=== PATIENT | female | born 1960 | race Caucasian/White ===

== ENCOUNTER 2017-12-30 04:54 | Outpatient (CLI) | payer BC, MEDICARE ==
[~2017-12-30 04:54] MED LIST: ALIR75PE INJ; AMLO10TA4 PO; ASPI-1264 PO; CELE200C PO; CITA20TA19 PO; CLOP75TA15 PO; CYCL-394 PO; FURO-149 PO; GLYB5TAB7 PO; LEVO100T78 PO; LORA1TAB PO; METF500T PO; NITR0.4T51 SL; RABE20TA18 PO; SPIR25TA3 PO
== END 2017-12-30 23:59 | disposition home or self-care (01) ==
LOC: DIABETIC 04:54
PROVIDERS: ATTEND Surgery
DX: E66.01 Morbid (severe) obesity due to excess calories (principal); I10 Essential (primary) hypertension; J45.909 Unspecified asthma, uncomplicated; E11.9 Type 2 diabetes mellitus without complications
CPT/HCPCS: 97802

== ENCOUNTER 2018-01-08 03:43 | Outpatient (CLI) | payer BC, MEDICARE | END 2018-01-08 23:59 | disposition home or self-care (01) | LOC: DIABETIC 03:43 | PROVIDERS: ATTEND Surgery | DX: E66.01 Morbid (severe) obesity due to excess calories (principal); E11.9 Type 2 diabetes mellitus without complications; I10 Essential (primary) hypertension; K21.9 Gastro-esophageal reflux disease without esophagitis; J45.909 Unspecified asthma, uncomplicated; G47.30 Sleep apnea, unspecified | CPT/HCPCS: 97802 ==

== ENCOUNTER 2018-02-10 04:35 | Outpatient (CLI) | payer BC, MEDICARE ==
[~2018-02-10 04:35] MED LIST changes: -SPIR25TA3 PO; +SPIR25TA5 PO
== END 2018-02-10 23:59 | disposition home or self-care (01) ==
LOC: DIABETIC 04:35
PROVIDERS: ATTEND Surgery
DX: E66.01 Morbid (severe) obesity due to excess calories (principal); I10 Essential (primary) hypertension; K21.9 Gastro-esophageal reflux disease without esophagitis; G47.30 Sleep apnea, unspecified; E11.9 Type 2 diabetes mellitus without complications; J45.909 Unspecified asthma, uncomplicated; Z79.899 Other long term (current) drug therapy
CPT/HCPCS: 97802

== ENCOUNTER 2018-03-10 02:20 | Outpatient (CLI) | payer BC, MEDICARE | END 2018-03-10 23:59 | disposition home or self-care (01) | LOC: DIABETIC 02:20 | PROVIDERS: ATTEND Surgery | DX: E66.01 Morbid (severe) obesity due to excess calories (principal); I10 Essential (primary) hypertension; E11.9 Type 2 diabetes mellitus without complications; K21.9 Gastro-esophageal reflux disease without esophagitis; J45.909 Unspecified asthma, uncomplicated; G47.30 Sleep apnea, unspecified | CPT/HCPCS: 97802 ==

== ENCOUNTER 2018-08-05 02:01 | Outpatient (CLI) | payer BC, MEDICARE | END 2018-08-05 23:59 | disposition home or self-care (01) | LOC: DIABETIC 02:01 | PROVIDERS: ATTEND Surgery | DX: E66.01 Morbid (severe) obesity due to excess calories (principal); E11.9 Type 2 diabetes mellitus without complications; I10 Essential (primary) hypertension; I25.2 Old myocardial infarction; J45.909 Unspecified asthma, uncomplicated; Z71.3 Dietary counseling and surveillance; Z79.82 Long term (current) use of aspirin; Z79.84 Long term (current) use of oral hypoglycemic drugs | CPT/HCPCS: 97802 ==

== ENCOUNTER 2021-03-10 09:43 | Day surgery (SDC) | payer BC, MEDICARE ==
[~2021-03-10] VITALS: Ht 170.2 cm; Wt 105.8 kg
[2021-03-10] VITALS (9 sets, daily range): BP systolic 137–160; BP diastolic 57–89
[2021-03-10] MEDS ORDERED: normal saline 1,000 ML IV SCH (10:10)
[2021-03-10] MEDS ORDERED: diphenhydrAMINE 25mg capsule PO PRN (10:10)
[2021-03-10 10:32] LABS: BASOPHILS % (AUTO) 0.4 % (0-1); EOSINOPHILS # (AUTO) 0.1 X10'3 (0-0.9); EOSINOPHILS % (AUTO) 2.3 % (0-6); HEMATOCRIT 41.5 % (35.0-45.0); HEMOGLOBIN 14.3 g/dl (12.0-16.0); LYMPHOCYTES # (AUTO) 1.4 X10'3 (1.1-4.8); LYMPHOCYTES % (AUTO) 27.1 % (21-51); MEAN CORPUSCULAR HEMOGLOBIN 28.8 PG (27.0-31.0); MEAN CORPUSCULAR HGB CONC 34.4 g/dL (33.0-36.5); MEAN CORPUSCULAR VOLUME 83.7 FL (78-98); MEAN PLATELET VOLUME 7.7 FL (7.4-10.4); MONOCYTES # (AUTO) 0.3 X10'3 (0-0.9); MONOCYTES % (AUTO) 5.8 % (2-12); NEUTROPHILS # (AUTO) 3.3 X10'3 (1.8-7.7); NEUTROPHILS % (AUTO) 64.4 % (42-75); PLATELET COUNT 210 X10'3 (140-440); RED BLOOD COUNT 4.96 X10'6 (4.20-5.60); RED CELL DISTRIBUTION WIDTH 13.7 % (11.5-14.5); WHITE BLOOD COUNT 5.1 X10'3 (4.5-11.0)
[2021-03-10] MEDS ORDERED: MULT-1085 PO (10:38)
[2021-03-10] MEDS ORDERED: OSC500T PO (10:39)
[2021-03-10] MEDS ORDERED: MAGN400C PO (10:40)
[2021-03-10] MEDS ORDERED: VITA-268 PO (10:41)
[2021-03-10 10:42] LABS: ALBUMIN 3.7 G/DL (3.4-5.0); ANION GAP 10 (8-16); BLOOD UREA NITROGEN 20 MG/DL (7-18); CALCIUM 8.5 MG/DL (8.5-10.1); CHLORIDE 105 MMOL/L (99-107); GLUCOSE 101 MG/DL (70-104); MAGNESIUM 1.8 MG/DL (1.5-2.4); SODIUM 142 MMOL/L (135-145); TOTAL CARBON DIOXIDE 26.9 MMOL/L (24-32); eGFR 72 ML/MIN
[2021-03-10] MEDS ORDERED: vitamin d3 PO (10:43)
[2021-03-10] MEDS ORDERED: BIOT50002 (10:44)
[2021-03-10] MEDS ORDERED: [UNRECOGNIZED DRUG - OTHER] (10:48)
[2021-03-10] MEDS ORDERED: METO-395 PO (10:49)
[2021-03-10] MEDS ORDERED: fentaNYL/PF 50MCG/1 ML 2ML syringe ONE (10:52)
[2021-03-10] MEDS ORDERED: midazolam 1 mg/ML 2ml injection ONE ×3 (10:52→13:09)
[2021-03-10] MEDS ORDERED: iohexol 350 MG/ML 50ML vial IV ONE ×2 (10:53→13:03)
[2021-03-10] MEDS ORDERED: iohexol 350MG/ML 100ml bottle IV ONE (10:53)
[2021-03-10] MEDS ORDERED: LIDOcaine 1% (10mg/ml)w/preservative injection 20ml MDV ONE (10:53)
[2021-03-10] MEDS ORDERED: heparin 1,000unit/ml 10ml vial 10 ML ONE ×2 (10:53→13:00)
[2021-03-10] MEDS ORDERED: clopidogrel 300mg tablet ONE (13:15)
[2021-03-10] MEDS ORDERED: HYDROcodone/acetaminophen 10/325mg tab PO PRN (13:45)
[2021-03-10] MEDS ORDERED: HYDROcodone/acetaminophen 5mg/325mg tablet PO PRN (13:45)
[2021-03-10] MEDS ORDERED: proCHLORperazine 10 MG/2 ml inj IV PRN (13:45)
[2021-03-10] MEDS ORDERED: OXAZEpam 15mg capsule PO PRN (13:45)
[2021-03-10] MEDS ORDERED: ondansetron/PF 4mg/2ml inj IV PRN (13:45)
[2021-03-10] MEDS ORDERED: normal saline 1000ml 1,000 ML IV SCH (13:45)
== END 2021-03-10 16:40 | disposition home or self-care (01) ==
LOC: SSTAY O 09:43
PROVIDERS: ATTEND Internal Medicine Cardiovascular Disease
DX: R07.89 Other chest pain (principal); I25.118 Atherosclerotic heart disease of native coronary artery with other forms of angina pectoris; I08.0 Rheumatic disorders of both mitral and aortic valves; I10 Essential (primary) hypertension; E78.5 Hyperlipidemia, unspecified; E11.9 Type 2 diabetes mellitus without complications; E66.9 Obesity, unspecified; Z68.36 Body mass index [BMI] 36.0-36.9, adult; G47.30 Sleep apnea, unspecified; Z98.84 Bariatric surgery status; Z88.8 Allergy status to other drugs, medicaments and biological substances; Z88.5 Allergy status to narcotic agent; Z79.899 Other long term (current) drug therapy; Z79.01 Long term (current) use of anticoagulants; Z95.5 Presence of coronary angioplasty implant and graft
CPT/HCPCS: 36415; 80048; 83735; 85025; 85610; 93005; 93458; 99152; 99153; C1725; C1751; C1760; C1769; C1874; C1894; C9600; J1644; J2001; J2250; J3010; J7030; Q0163; Q9967; A4620; A6258

== ENCOUNTER 2024-05-18 07:31 | Day surgery (SDC) | payer MEDICARE, BC ==
[~2024-05-18] VITALS: Ht 170.2 cm; Wt 103.5 kg
[2024-05-18] VITALS (11 sets, daily range): BP systolic 117–144; BP diastolic 63–85; PULSE 56–71; RESP 13–18; TEMP 98.9; O2SAT 94–98
[~2024-05-18 07:31] MED LIST changes: -ALIR75PE INJ; -ASPI-1264 PO; +BIOT50002; -FURO-149 PO; -GLYB5TAB7 PO; +MAGN400C PO; -METF500T PO; +METO-395 PO; +MULT-1085 PO; +OSC500T PO; +RABE-13 PO; -RABE20TA18 PO; -SPIR25TA5 PO; +VITA-268 PO; +[UNRECOGNIZED DRUG - OTHER]; +vitamin d3 PO
[2024-05-18 08:22] LABS: BASOPHILS % (AUTO) 0.5 % (0-1); EOSINOPHILS # (AUTO) 0.1 X10'3 (0-0.9); EOSINOPHILS % (AUTO) 2.2 % (0-6); HEMATOCRIT 44.7 % (35.0-45.0); HEMOGLOBIN 15.2 g/dl (12.0-16.0); LYMPHOCYTES # (AUTO) 1.6 X10'3 (1.1-4.8); LYMPHOCYTES % (AUTO) 26.9 % (21-51); MEAN CORPUSCULAR HEMOGLOBIN 28.9 PG (27.0-31.0); MEAN CORPUSCULAR HGB CONC 33.9 g/dL (33.0-36.5); MEAN CORPUSCULAR VOLUME 85.2 FL (78-98); MEAN PLATELET VOLUME 7.6 FL (7.4-10.4); MONOCYTES # (AUTO) 0.4 X10'3 (0-0.9); MONOCYTES % (AUTO) 6.4 % (2-12); NEUTROPHILS # (AUTO) 3.7 X10'3 (1.8-7.7); PLATELET COUNT 231 X10'3 (140-440); RED BLOOD COUNT 5.25 X10'6 (4.20-5.60); WHITE BLOOD COUNT 5.8 X10'3 (4.5-11.0)
[2024-05-18 08:27] LABS: ALBUMIN 4.2 G/DL (3.4-5.0); ANION GAP 8 (8-16); BLOOD UREA NITROGEN 17 MG/DL (7-18); BUN/CREATININE RATIO 19.8 (10.0-20.0); CALCIUM 9.2 MG/DL (8.5-10.1); CHLORIDE 105 MMOL/L (99-107); CREATININE 0.86 MG/DL (0.40-0.90); GLUCOSE 84 MG/DL (70-104); POTASSIUM 3.9 MMOL/L (3.5-5.1); SODIUM 141 MMOL/L (135-145); TOTAL CARBON DIOXIDE 28.4 MMOL/L (24-32); eCRCL 63 ML/MIN; eGFR 66 ML/MIN
[2024-05-18] MEDS: normal saline 1,000 ML IV SCH (08:55)
[2024-05-18] MEDS: diphenhydrAMINE 25mg capsule PO PRN (08:55)
[2024-05-18] MEDS: sodium bicarbonate 1meq/ml syr 150 ML in dextrose 5%-water 1,000 ML IV ONE (08:56)
[2024-05-18 09:14] LABS: PROTHROMBIN TIME 10.7 SECONDS (9.0-12.0)
[2024-05-18] MEDS ORDERED: verapamil 2.5 mg/ml inj IV ONE (11:44)
[2024-05-18] MEDS ORDERED: heparin 1,000unit/ml 10ml vial 10 ML ONE (11:44)
[2024-05-18] MEDS ORDERED: LIDOcaine 1% (10mg/ml) 2ml vial ONE (11:44)
[2024-05-18] MEDS ORDERED: iohexol 350 MG/ML 50ML vial IV ONE (11:44)
[2024-05-18] MEDS ORDERED: midazolam 1 mg/ML 2ml injection ONE ×2 (11:44→12:13)
[2024-05-18] MEDS ORDERED: fentaNYL/PF 50MCG/1 ML 2ML syringe ONE (11:44)
[2024-05-18] MEDS ORDERED: iohexol 350MG/ML 100ml bottle IV ONE ×2 (11:44→12:52)
[2024-05-18] MEDS ORDERED: nitroGLYCERIN 500mcg/5mL D5W 5 ML IV ONE (11:56)
[2024-05-18] MEDS ORDERED: heparin 1,000 UNITS/NS 500ml 500 ML ONE (12:52)
[2024-05-18] MEDS ORDERED: clopidogrel 300mg tablet ONE (13:06)
[2024-05-18] MEDS ORDERED: aspirin 325mg tablet ONE (13:06)
[2024-05-18] MEDS ORDERED: sodium bicarbonate 1meq/ml syr 150 ML in dextrose 5%-water 1,000 ML IV ONE (13:45)
[2024-05-18] MEDS: nitroGLYCERIN 0.4mg SUBLingual tab SL PRN (14:05)
[2024-05-18] MEDS: mag hydrox/Alum hydrox/simeth 30ml oral suspension PO ONE (15:26)
== END 2024-05-18 17:00 | disposition home or self-care (01) ==
LOC: SSTAY O 07:31
PROVIDERS: ATTEND Internal Medicine Cardiovascular Disease
DX: R07.9 Chest pain, unspecified (principal); I25.10 Atherosclerotic heart disease of native coronary artery without angina pectoris; I10 Essential (primary) hypertension; E78.5 Hyperlipidemia, unspecified; E66.9 Obesity, unspecified; I73.9 Peripheral vascular disease, unspecified; G47.30 Sleep apnea, unspecified; Z79.899 Other long term (current) drug therapy; Z98.84 Bariatric surgery status; Z68.35 Body mass index [BMI] 35.0-35.9, adult; Z88.8 Allergy status to other drugs, medicaments and biological substances
CPT/HCPCS: 36415; 80048; 83735; 85025; 85610; 93005; 93458; 99152; 99153; A6258; A6402; C1725; C1751; C1769; C1874; C1894; C9600; J1644; J2001; J2250; J3010; J3490; J7030; J7070; Q0163; Q9967; Z7610; A6449

== ENCOUNTER 2024-06-19 08:42 | Day surgery (SDC) | payer MEDICARE, BC ==
[~2024-06-19] VITALS: Ht 170.2 cm; Wt 100.8 kg
[2024-06-19] VITALS (10 sets, daily range): BP systolic 106–148; BP diastolic 65–98; PULSE 58–76; RESP 14–16; TEMP 97.8; O2SAT 98–99
[~2024-06-19 08:42] MED LIST changes: -LORA1TAB PO; -METO-395 PO
[2024-06-19] MEDS: sodium bicarbonate 1meq/ml syr 150 ML in dextrose 5%-water 1,000 ML IV ONE (10:08)
[2024-06-19] MEDS: diphenhydrAMINE 25mg capsule PO PRN (10:10)
[2024-06-19] MEDS: normal saline 1,000 ML IV SCH (10:11)
[2024-06-19 10:28] LABS: BASOPHILS % (AUTO) 0.6 % (0-1); EOSINOPHILS # (AUTO) 0.1 X10'3 (0-0.9); EOSINOPHILS % (AUTO) 1.7 % (0-6); HEMATOCRIT 41.3 % (35.0-45.0); HEMOGLOBIN 13.9 g/dl (12.0-16.0); LYMPHOCYTES # (AUTO) 1.4 X10'3 (1.1-4.8); LYMPHOCYTES % (AUTO) 24.9 % (21-51); MEAN CORPUSCULAR HEMOGLOBIN 28.8 PG (27.0-31.0); MEAN CORPUSCULAR HGB CONC 33.7 g/dL (33.0-36.5); MEAN CORPUSCULAR VOLUME 85.5 FL (78-98); MEAN PLATELET VOLUME 7.3 FL (7.4-10.4); MONOCYTES # (AUTO) 0.3 X10'3 (0-0.9); MONOCYTES % (AUTO) 6.3 % (2-12); NEUTROPHILS # (AUTO) 3.6 X10'3 (1.8-7.7); NEUTROPHILS % (AUTO) 66.5 % (42-75); PLATELET COUNT 206 X10'3 (140-440); RED BLOOD COUNT 4.83 X10'6 (4.20-5.60); RED CELL DISTRIBUTION WIDTH 14.1 % (11.5-14.5); WHITE BLOOD COUNT 5.4 X10'3 (4.5-11.0)
[2024-06-19 10:35] LABS: ALBUMIN 3.5 G/DL (3.4-5.0); ANION GAP 6 (8-16); BLOOD UREA NITROGEN 16 MG/DL (7-18); CALCIUM 8.5 MG/DL (8.5-10.1); CHLORIDE 106 MMOL/L (99-107); GLUCOSE 89 MG/DL (70-104); MAGNESIUM 2.3 MG/DL (1.5-2.4); SODIUM 139 MMOL/L (135-145); TOTAL CARBON DIOXIDE 26.8 MMOL/L (24-32); eCRCL 67 ML/MIN; eGFR 72 ML/MIN
[2024-06-19] MEDS ORDERED: LIDOcaine 1% (10mg/ml) 2ml vial ONE (10:36)
[2024-06-19] MEDS ORDERED: iohexol 350 MG/ML 50ML vial IV ONE (10:36)
[2024-06-19] MEDS ORDERED: iohexol 350MG/ML 100ml bottle IV ONE ×2 (10:36→12:17)
[2024-06-19] MEDS ORDERED: verapamil 2.5 mg/ml inj IV ONE (10:36)
[2024-06-19] MEDS ORDERED: nitroGLYCERIN 500mcg/5mL D5W 5 ML IV ONE (10:36)
[2024-06-19] MEDS ORDERED: heparin 1,000unit/ml 10ml vial 10 ML ONE (10:36)
[2024-06-19] MEDS ORDERED: midazolam 1 mg/ML 2ml injection ONE ×2 (11:30→11:56)
[2024-06-19] MEDS ORDERED: fentaNYL/PF 50MCG/1 ML 2ML syringe ONE (11:31)
[2024-06-19] MEDS ORDERED: clopidogrel 300mg tablet ONE (12:37)
[2024-06-19] MEDS ORDERED: aspirin 81mg tab.chew ONE (12:40)
[2024-06-19] MEDS ORDERED: ondansetron/PF 4mg/2ml inj IV PRN (13:20)
[2024-06-19] MEDS ORDERED: proCHLORperazine 10 MG/2 ml inj IV PRN (13:20)
== END 2024-06-19 16:00 | disposition home or self-care (01) ==
LOC: SSTAY O 08:42
PROVIDERS: ATTEND Internal Medicine Cardiovascular Disease
DX: I25.119 Atherosclerotic heart disease of native coronary artery with unspecified angina pectoris (principal); R94.31 Abnormal electrocardiogram [ECG] [EKG]; I10 Essential (primary) hypertension; E78.5 Hyperlipidemia, unspecified; E66.9 Obesity, unspecified; G47.30 Sleep apnea, unspecified; Z98.84 Bariatric surgery status; Z95.5 Presence of coronary angioplasty implant and graft; Z68.34 Body mass index [BMI] 34.0-34.9, adult; Z88.8 Allergy status to other drugs, medicaments and biological substances
CPT/HCPCS: 36415; 80048; 82948; 83735; 85025; 92920; 93005; 93454; 99152; 99153; A6258; A6402; C1725; C1751; C1769; C1874; C1894; C9600; J1644; J2250; J3010; J3490; J7030; J7070; Q0163; Q9967